=== PATIENT | female | born 2000 | race African-American/Black ===

== ENCOUNTER 2023-01-21 21:46 | Emergency (ER) | payer OTHER, SELFPAY | END 2023-01-21 22:00 | disposition home or self-care (01) | LOC: CSHERS 21:46 | DX: B34.9 Viral infection, unspecified (principal); Z20.822 Contact with and (suspected) exposure to COVID-19 | CPT/HCPCS: 87635; 99284 ==

== ENCOUNTER 2023-04-01 09:06 | Emergency (ER) | payer BC, SELFPAY ==
[2023-04-01 09:38] LABS: #Monocytes 0.6 10x3/uL (0.0-1.1); #Neutrophils 4.6 10x3/uL (1.5-8.4); %Basophils 0.3 % (0.0-2.0); %Eosinophils 0.3 % (0.0-6.0); %Lymphocytes 21.3 % (18.0-47.0); %Monocytes 8.6 % (0.0-10.0); %Neutrophils 69.2 % (40.0-75.0); Hematocrit 35.7 % (34.9-44.5); Mean Corpuscular HGB CONC 33.6 g/dL (32.0-36.0); Mean Corpuscular Hemoglobin 30.5 pg (27.0-33.0); Mean Corpuscular Volume 90.6 fl (81.6-98.3); Mean Platelet Volume 9.4 fl (7.4-10.4); Platelet Count 429 10x3/uL (150-450); RBC Distribution Width 13.1 % (11.5-14.5); Red Blood Cell (RBC) Count 3.94 10x6/uL (3.90-5.03); White Blood Cell (WBC) Count 6.6 10x3/uL (3.5-10.5)
[2023-04-01 09:47] LABS: BHCG - Serum Negative (NEGATIVE); Pregs Control Background? CLEAR/WHITE (CLR/WHITE); Pregs Control Bar Appear? YES (CONTROL BAR)
[2023-04-01 09:51] LABS: ALT (SGPT) 11 U/L (8-55); AST (SGOT) 11 U/L (5-34); Albumin 4.3 g/dL (3.5-5.0); Alkaline Phosphatase 59 U/L (40-100); Anion Gap 15 mmol/L (10-20); BUN (Urea Nitrogen) 10 mg/dL (7.0-18.7); Bilirubin, Total 0.5 mg/dL (0.2-1.2); Calc. Creatinine Clearance 0 mL/min (70-130); Calcium 9.3 mg/dL (7.8-10.44); Carbon Dioxide 22 mmol/L (22-29); Chloride 106 mmol/L (98-107); Estimated GFR 115; Globulin 2.8 g/dL (2.4-3.5); Glucose 79 mg/dL (70-105); Lipase 6 U/L (8-78); Potassium 3.7 mmol/L (3.5-5.1); Protein, Total 7.1 g/dL (6.0-8.3); Sodium 139 mmol/L (136-145)
[2023-04-01] MEDS ORDERED: Dicyclomine 20 MG/2 ML VIAL ONE (10:48)
[2023-04-01] MEDS ORDERED: Ketorolac Tromethamine 30 MG/ML VIAL ONE (10:48)
[2023-04-01] MEDS ORDERED: Dicyclomine 20 MG TAB ONE (10:53)
[2023-04-01 10:56] LABS: Bilirubin Neg (Negative); Blood, Urine Negative (Negative); Clarity Clear (Clear); Glucose, Urine (Dipstick) Normal (Negative); Ketone, Urine 50 mg/dL (Negative); Leukocyte 25 (Negative); Nitrite Negative (Negative); Protein, Urine (Dipstick) Negative (Neg-Trace); Urobilinogen Normal mg/dL (Less than 2)
[2023-04-01 11:06] LABS: Bacteria/HPF None Seen HPF (None Seen); CAUTI Indications for Culture Dysuria,urgency,freq; RBC/HPF None Seen HPF (0-3); Squamous Epithelial 0-3 HPF (0-3); WBC/HPF 0-3 HPF (0-3)
[2023-04-01 11:08] LABS: Urine Culture Reflex No No
== END 2023-04-01 11:20 | disposition home or self-care (01) ==
LOC: CSHERS 09:06
DX: R14.0 Abdominal distension (gaseous) (principal)
CPT/HCPCS: 80053; 81001; 83690; 84703; 85025; 96374; J1885

== ENCOUNTER 2025-01-31 10:07 | Inpatient (IN) | payer OTHER ==
[2025-01-30 12:37] LABS: Hematocrit 30.1 % (34.9-44.5); Hemoglobin 9.8 g/dL (12.0-15.5); Platelet Count 391 10x3/uL (150-450)
[2025-01-30 13:11] LABS: HIV (1/2) Antibody/Antigen Non-Reactive (NonReactive); HIV 1/2 INDEX 0.11 S/CO (<1.00); Hep B Surf Ag Non-Reactive S/CO (NonReactive)
[2025-01-30 13:12] LABS: Syphilis Antibody Index 0.07 S/CO (<1.00 Non-Reactive)
[~2025-01-31 10:07] MED LIST: Bicitra 30 ML UDCUP PO PRN; Ondansetron PF 4 MG/2 ML Vial IVP PRN; Oxytocin 30 units/NS 500 ML 500 ML IV SCH; hydrALAZINE 20 MG/ML VIAL SLOW IVP PRN
[2025-01-31 10:38] VITALS: BMI 41.9
[2025-01-31] MEDS: Famotidine/PF 20 mg/2ml Vial SLOW IVP PRN (11:10)
[2025-01-31 11:44] LABS: Hematocrit 22.4 % (34.9-44.5); Hemoglobin 7.3 g/dL (12.0-15.5); Mean Corpuscular Hemoglobin 29.4 pg (27.0-33.0); Mean Corpuscular Volume 90.3 fL (81.6-98.3); Platelet Count 441 10x3/uL (150-450); Red Blood Cell (RBC) Count 2.48 10x6/uL (3.90-5.03); White Blood Cell (WBC) Count 6.81 10x3/uL (3.5-10.5)
[2025-01-31] MEDS ORDERED: hydrALAZINE 20 MG/ML VIAL SLOW IVP PRN (13:04)
[2025-01-31] MEDS ORDERED: diphenhydrAMINE 50 MG/ML VIAL IVP PRN (13:21)
[2025-01-31] MEDS ORDERED: Meperidine HCl/PF 25 MG (1 mL) VIAL SLOW IVP PRN (13:21)
[2025-01-31] MEDS ORDERED: Ondansetron PF 4 MG/2 ML Vial IVP PRN ×2 (13:21)
[2025-01-31] MEDS ORDERED: HYDROmorphone 0.5 MG/0.5 ML SYRINGE SLOW IVP PRN (13:21)
[2025-01-31] MEDS ORDERED: Communication Order-Pharmacy FS SCH (13:30)
[2025-01-31] MEDS: Erythromycin Base 0.5% Oint 1 GM TUBE ONE (13:32)
[2025-01-31] MEDS: Ondansetron PF 4 MG/2 ML Vial ONE (13:33)
[2025-01-31] MEDS: Lidocaine 2% MPF 10 ML AMP (For Epidural Use) ONE (13:33)
[2025-01-31] MEDS: Dexamethasone 10 MG/ML VIAL ONE (13:33)
[2025-01-31] MEDS: Oxytocin 10 UNITS/ML VIAL ONE ×2 (13:33)
[2025-01-31] MEDS ORDERED: Ibuprofen 800 MG TAB PO SCH (14:00)
[2025-01-31] MEDS: Ketorolac Tromethamine 30 MG (1 mL) VIAL IVP SCH (16:01)
[2025-01-31] MEDS: Ondansetron PF 4 MG/2 ML Vial IVP PRN (16:02)
[2025-01-31] MEDS ORDERED: HYDROcodone/Acetaminophen 5/325 mg Tablet PO PRN (23:00)
[2025-02-01] MEDS: Ketorolac Tromethamine 30 MG (1 mL) VIAL IVP PRN (04:34)
[2025-02-01 05:50] LABS: Hematocrit 29.1 % (34.9-44.5); Hemoglobin 9.5 g/dL (12.0-15.5); Mean Corpuscular Hemoglobin 28.8 pg (27.0-33.0); Mean Corpuscular Volume 88.2 fL (81.6-98.3); Platelet Count 417 10x3/uL (150-450); Red Blood Cell (RBC) Count 3.30 10x6/uL (3.90-5.03); White Blood Cell (WBC) Count 14.57 10x3/uL (3.5-10.5)
[2025-02-01] MEDS: Simethicone Chewable 80 MG TAB PO PRN (14:03)
[2025-02-01] MEDS: Ibuprofen 800 MG TAB PO SCH (21:43)
[2025-02-01] MEDS: HYDROcodone/Acetaminophen 10/325 mg Tablet PO PRN (23:21)
[2025-02-02] MEDS: Hepatitis B Vaccine 10 MCG/0.5 ML SYR ONE (07:54)
[2025-02-02] MEDS: Boostrix 0.5 ML (Tdap) VIAL (>/=7 yrs of age) IM ONE (07:55)
[2025-02-02] MEDS: HYDROcodone/Acetaminophen 10/325 mg Tablet PO PRN (20:34)
[2025-02-03 17:06] VITALS: BP 101/55; TEMP 98.1
== END 2025-02-03 18:40 | disposition home or self-care (01) | DRG 788 ==
LOC: CSHLD 10:07 → CSHPP 14:24
PROVIDERS: ADMIT Obstetrics & Gynecology; ATTEND Obstetrics & Gynecology
PROC: 10D00Z1 Extraction of Products of Conception, Low, Open Approach (ICD-10-PCS; principal; 2025-01-31)
DX: O13.4 Gestational [pregnancy-induced] hypertension without significant proteinuria, complicating childbirth (principal); Z3A.38 38 weeks gestation of pregnancy; Z37.0 Single live birth
CPT/HCPCS: 51702; 85014; 85018; 85027; 85049; 86780; 86850; 86900; 86901; 87340; 87389; J1100; J1308; J1885; J2274; J2405; J2590